=== PATIENT | male | born 1945 | race Caucasian/White ===

== ENCOUNTER → 2024-08-20 10:58 | Outpatient (REF) | payer OTHER, SELFPAY | LOC: HWRCS 10:58 | PROVIDERS: ATTENDING PHYSICIAN Internal Medicine | DX: R07.9 Chest pain, unspecified (principal) | CPT/HCPCS: 93306 ==

== ENCOUNTER → 2024-09-18 06:44 | Outpatient (REF) | payer OTHER, SELFPAY ==
[2024-09-18] MEDS: LEXISCAN 0.4 MG IV (08:48)
[2024-09-18] MEDS: FLUSH (NSS) 1 FLUSH IV (08:56)
== END ==
LOC: RCS 06:44
PROVIDERS: ATTENDING PHYSICIAN Internal Medicine
DX: R07.9 Chest pain, unspecified (principal)
CPT/HCPCS: 78452; 93017; A9500; J2785